=== PATIENT | female | born 1965 | race American Indian/Alaskan Native ===

== ENCOUNTER 2018-08-09 20:09 | Emergency (ER) | payer OTHER ==
--- NOTE | 2018-08-09 20:51 | Emergency Department Report ---
Blank Doc - Documentation Documentation: This is a 53-year-old female that presents with dizziness. Stated hx of anemia. This initial assessment/diagnostic orders/clinical plan/treatment(s) is/are subject to change based on patient's health status, clinical progression and re- assessment by fellow clinical providers in the ED. Further treatment and workup at subsequent clinical providers discretion. Patient/guardians urged not to elope from the ED as their condition may be serious if not clinically assessed and managed. Initial orders include: 1- Patient sent to [facility] for further evaluation and treatment 2- labs
[2018-08-09 21:38] LABS: BUN/Creatinine Ratio 18; Blood Urea Nitrogen 9 mg/dL (7-17); Calcium 9.4 mg/dL (8.4-10.2); Hemolysis Index 18
[2018-08-09 21:39] LABS: Basophils # (Auto) 0.1 K/mm3 (0.0-0.1); Basophils % (Auto) 1.2 % (0.0-1.8); Eosinophils # (Auto) 0.1 K/mm3 (0.0-0.4); Eosinophils % (Auto) 1.1 % (0.0-4.3); Lymphocytes # (Auto) 2.2 K/mm3 (1.2-5.4); Lymphocytes % (Auto) 27.9 % (13.4-35.0); Mean Corpuscular HGB Conc 27 % (30-34); Monocytes # (Auto) 0.6 K/mm3 (0.0-0.8); Monocytes % (Auto) 8.1 % (0.0-7.3); Platelet Count 297 K/mm3 (140-440); Red Blood Count 3.93 M/mm3 (3.65-5.03)
[2018-08-09 21:49] LABS: Hematocrit 21.4 % (30.3-42.9); Hemoglobin 5.8 gm/dl (10.1-14.3); Mean Corpuscular Volume 54 fl (79-97)
[2018-08-09 21:50] LABS: Red Cell Distribution Width 21.7 % (13.2-15.2)
--- NOTE | 2018-08-09 23:29 | Emergency Department Report ---
ED Dizziness HPI - General Chief Complaint: Dizziness Stated Complaint: DIZZINESS Time Seen by Provider: 08/09/18 20:50 Source: patient Mode of arrival: Ambulatory Limitations: No Limitations - History of Present Illness Initial Comments: Mrs. Lew is a 53-year-old female with a history of iron deficiency anemia who presents with dizziness for the last 3 days. She has been noncompliant with iron therapy due to GI symptoms. Recently she has self medicated with otc iron tablets. Iron causes nausea and vomiting if taken on an empty stomach. She has lightheadedness. She denies chest pain. She has headache. Has abdominal pain. She is currently still menstruating. She currently menstruates 7 days per month. In 2013 at [facility], she received 2-3 units of blood for severe anemia. She currently does not desire blood transfusion. Denies dark stools denies hematemesis. Denies rectal bleeding. MD Complaint: dizziness -: days(s) (3) Timing: gradual onset Description: lightheadedness History of Same: Yes History of Trauma: No Severity: mild Improves With: nothing Worsens With: nothing - Related Data Allergies Allergy/AdvReac Type Severity Reaction Status Date / Time No Known Allergies Allergy Unverified 08/09/18 20:37 ED Review of Systems ROS: Stated complaint: DIZZINESS Other details as noted in HPI Comment: All other systems reviewed and negative Eyes: denies: eye discharge Cardiovascular: denies: chest pain Neurological: denies: headache, numbness, paresthesias ED Past Medical Hx - Past Medical History Previous Medical History?: Yes Additional medical history: anemia-last bld transfusion 2013 - Surgical History Past Surgical History?: No - Family History Family history: diabetes - Social History Smoking Status: Never Smoker Substance Use Type: None ED Physical Exam - General Limitations: No Limitations General appearance: alert, in no apparent distress, other (moves and transfer with ease) - Head Head exam: Present: atraumatic, normocephalic - Eye Eye exam: Present: normal appearance - ENT ENT exam: Present: mucous membranes moist - Neck Neck exam: Present: normal inspection, full ROM - Respiratory Respiratory exam: Present: normal lung sounds bilaterally. Absent: respiratory distress, wheezes, rales, rhonchi - Cardiovascular Cardiovascular Exam: Present: regular rate, normal rhythm, normal heart sounds. Absent: systolic murmur, diastolic murmur, rubs, gallop - GI/Abdominal GI/Abdominal exam: Present: soft, normal bowel sounds. Absent: distended, tenderness, guarding, rebound - Extremities Exam Extremities exam: Present: normal inspection - Back Exam Back exam: Present: normal inspection - Neurological Exam Neurological exam: Present: alert, oriented X3 - Psychiatric Psychiatric exam: Present: normal affect, normal mood - Skin Skin exam: Present: warm, dry, intact, normal color. Absent: rash ED Course Vital Signs 08/09/18 08/09/18 20:18 20:51 Temperature 98.7 F 98 F Pulse Rate 97 H 100 H Respiratory 16 18 Rate Blood Pressure 125/71 125/71 O2 Sat by Pulse 100 100 Oximetry ED Medical Decision Making - Lab Data Result diagrams: 08/09/18 21:12 08/09/18 21:11 - Medical Decision Making Ms. Lew presents with microcytic anemia which corresponds to iron deficiency. She does not urgently require transfusion at this time. She plans to attempt consistent use of iron therapy. Referred to outside clinic. Critical care attestation.: If time is entered above; I have spent that time in minutes in the direct care of this critically ill patient, excluding procedure time. ED Disposition Clinical Impression: Iron deficiency anemia, Dizziness Disposition: DC-01 TO HOME OR SELFCARE Is pt being admited?: No Does the pt Need Aspirin: No Condition: Stable Instructions: Iron Deficiency Anemia (ED), Iron Rich Diet (ED) Referrals: CHAGO GUY MD [Primary Care Provider] - 3-5 Days Forms: Work/School Release Form(ED)
[2018-08-09 23:52] VITALS: BP 154/97
== END 2018-08-09 23:52 | disposition home or self-care (01) ==
LOC: ED 20:09
DX: D50.9 Iron deficiency anemia, unspecified (principal)
CPT/HCPCS: 36415; 80048; 85025; 86850; 86900; 86901; 99283